=== PATIENT | female | born 1940 ===

== ENCOUNTER 2019-01-16 12:21 | Emergency (ER) | payer OTHER ==
[~2019-01-16] VITALS: Ht 152.4 cm; Wt 61.7 kg
[2019-01-16] MEDS ORDERED: NORVASC2.5 M1 PO (13:24)
[2019-01-16] MEDS ORDERED: LEVOXYL75 MCG PO (13:24)
[2019-01-16] MEDS ORDERED: ROSUVASTATIN CA20 MG PO (13:26)
== END 2019-01-16 15:13 | disposition home or self-care (01) ==
LOC: ER 12:21
DX: S00.83XA Contusion of other part of head, initial encounter (principal); S40.021A Contusion of right upper arm, initial encounter; W01.198A Fall on same level from slipping, tripping and stumbling with subsequent striking against other object, initial encounter; Y93.89 Activity, other specified; Y92.018 Other place in single-family (private) house as the place of occurrence of the external cause; Y99.8 Other external cause status